=== PATIENT | female | born 1990 | race Caucasian/White ===

== ENCOUNTER 2017-05-02 03:31 | Emergency (ER) ==
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
[2017-05-02 05:28] VITALS: BP 120/68
[2017-05-02 07:29] LABS: APPEARANCE,URINE CLEAR (CLEAR); COLOR,URINE YELLOW (YELLOW)
[2017-05-02 07:30] LABS: OCCULT BLOOD,URINE NEGATIVE (NEGATIVE); URINE HCG NEGATIVE (NEGATIVE); UROBILINOGEN URINE 0.2 Eu (0.2-1.0)
== END 2017-05-02 05:15 | disposition home or self-care (01) ==
LOC: ED 03:31
DX: S01.111A Laceration without foreign body of right eyelid and periocular area, initial encounter (principal); V49.9XXA Car occupant (driver) (passenger) injured in unspecified traffic accident, initial encounter; Y93.9 Activity, unspecified; Y99.9 Unspecified external cause status
CPT/HCPCS: 12013; 70450; 71250; 72125; 81002; 81025; 99283

== ENCOUNTER 2019-05-20 17:25 | Emergency (ER) | payer OTHER ==
--- NOTE | 2019-05-20 17:36 | ED Physician Documentation ---
General Adult - HISTORIAN Historian: patient - HPI Stated Complaint: pelvic pain Chief Complaint: General Adult Additional Information: Patient presents to ED with a 7 month history of intermittent pelvic pain. Patient states she is in no pain now but was in pain yesterday so she was unable to go to work. She reports her employer will write her up if she does not have a doctors note. Patient was evaluated previously for this pain and was told it was likely ovarian cyst. She has not taken anything for the pain. Patient reports the pain happens every 2-3 weeks and changes sides, sometimes it is on the left, other times on the right. She uses Mirana for control. Onset: other (7 months) Timing: still present Severity: mild - ROS CONST: no problems EYES/ENT: none CVS/RESP: none GI/: none MS/SKIN/LYMPH: none NEURO/PSYCH: denies: headache - PAST HX Past History: none Other History: none Surgeries/Procedures: none Allergies/Adverse Reactions: Allergies Allergy/AdvReac Type Severity Reaction Status Date / Time No Known Allergies Allergy Verified 05/20/19 17:41 Home Medications: Ambulatory Orders Medication Instructions Recorded Levonorgestrel [Mirena] 1 each IY QDAY 05/02/17 Ketorolac Tromethamine [Toradol] 10 mg PO Q6H #20 tablet 05/20/19 - SOCIAL HX Smoking History: cigarettes, greater than 1 pack/day Alcohol Use: occasionally Drug Use: marijuana - FAMILY HX Family History: No - VITAL SIGNS Vital Signs: Vital Signs Temp Pulse Resp BP Pulse Ox 120/68 05/02/17 05:15 - REVIEWED ASSESSMENTS Nursing Assessment Reviewed: Yes Vitals Reviewed: Yes ED Results Lab/Radiology - Lab Results Lab Results: UA - negative General Adult Physical Exam - PHYSICAL EXAM GENERAL APPEARANCE: no distress EENT: KARYNA NECK: supple RESPIRATORY: no resp distress, chest non-tender, breath sounds normal CVS: reg rate & rhythm, heart sounds normal ABDOMEN: soft, normal bowel sounds, non-tender BACK: normal inspection, no CVA tenderness SKIN: warm/dry EXTREMITIES: non-tender NEURO: oriented X3, mood/affect nml Discharge Clincal Impression: Pelvic pain Prescriptions: Ketorolac Tromethamine [Toradol] 10 mg PO Q6H #20 tablet Referrals: Sana Gamboa FNP [Primary Care Provider] - 2 Days Additional Instructions: 1. Toradol every 6 hours as needed for pelvic pain 2. Stay active 3. Follow up with PCP within 1 week. Discuss getting Ultrasound 4. Return to ER for new or worsening symptoms Condition: Stable Disposition: 01 HOME, SELF-CARE Decision to Admit: NO Date of Decison to Admit: 05/20/19 Decision Time: 17:48
[2019-05-20 17:48] VITALS: BP 137/68
[2019-05-20 18:25] LABS: APPEARANCE,URINE CLOUDY (CLEAR); COLOR,URINE YELLOW (YELLOW); OCCULT BLOOD,URINE NEGATIVE (NEGATIVE); PH URINE 7.5 (5.0 - 8.0); UROBILINOGEN URINE 0.2 Eu (0.2-1.0)
== END 2019-05-20 17:53 | disposition home or self-care (01) ==
LOC: ED 17:25
DX: R10.2 Pelvic and perineal pain (principal)
CPT/HCPCS: 81002